=== PATIENT | female | born 2000 | race Caucasian/White ===

== ENCOUNTER 2021-12-25 17:27 | Emergency (ER) | payer BC ==
[~2021-12-25] VITALS: Ht 170.2 cm; Wt 63.5 kg
[2021-12-25] MEDS ORDERED: LISINOPRIL PO (17:48)
== END 2021-12-25 23:18 | disposition home or self-care (01) ==
LOC: ER 17:27
DX: M79.672 Pain in left foot (principal); S90.812A Abrasion, left foot, initial encounter